=== PATIENT | female | born 1970 | race Caucasian/White ===

== ENCOUNTER 2019-12-24 17:01 | Emergency (ER) | payer OTHER ==
[2019-12-24 17:09] VITALS: BP 105/69; PULSE 101
--- NOTE | 2019-12-24 17:21 | EDM.PDOC ---
ED HPI GENERAL MEDICAL PROBLEM - General Chief Complaint: Respiratory Problem Stated Complaint: body aches, headache, covid+ Time Seen by Provider: 12/24/19 17:05 Source of Information: Reports: Patient History Limitations: Reports: No Limitations - History of Present Illness INITIAL COMMENTS - FREE TEXT/NARRATIVE: Patient comes into the emergency department with complaints of fever, body aches, chills, and Covid19+. Patient states that she was diagnosed Covid positive on December 17 with symptoms are in 3 days prior to that. Patient states that her symptoms have been intermittent initially she had significant fever, body aches, chills and fatigue however they were starting to feel better until about the last 24 hours and have increased. She also states that her cough is increased in shortness of breath with exertion. Patient states that when she is resting and not moving her shortness of breath is pretty minimal. She states that she has been taken Tylenol multiple times a day to help with the headache and the body aches. She does not feel the medication has helped substantially to relieve her symptoms. Onset: Gradual Headache Pain Score (Numeric/FACES): 5 - Related Data Allergies Allergy/AdvReac Type Severity Reaction Status Date / Time No Known Allergies Allergy Verified 12/24/19 17:12 Home Meds: Home Meds Azithromycin 250 mg PO DAILY #6 tablet 12/24/19 [Rx] Benzonatate [Tessalon Perle] 100 mg PO BID #20 capsule 12/24/19 [Rx] Gabapentin [Neurontin] 100 mg PO TID PRN 12/24/19 [History] predniSONE [Prednisone] 20 mg PO BID 5 Days #10 tablet 12/24/19 [Rx] ED ROS GENERAL - Review of Systems Review Of Systems: Comprehensive ROS is negative, except as noted in HPI. Constitutional: Reports: Fever, Chills, Fatigue HEENT: Reports: No Symptoms Respiratory: Reports: Shortness of Breath, Cough Cardiovascular: Reports: Dyspnea on Exertion Endocrine: Reports: No Symptoms GI/Abdominal: Reports: No Symptoms : Reports: No Symptoms Musculoskeletal: Reports: No Symptoms Skin: Reports: No Symptoms Neurological: Reports: No Symptoms Psychiatric: Reports: No Symptoms Hematologic/Lymphatic: Reports: No Symptoms Immunologic: Reports: No Symptoms ED EXAM, GENERAL - Physical Exam Exam: See Below Exam Limited By: No Limitations General Appearance: Alert, WD/WN, No Apparent Distress Eye Exam: Bilateral Eye: EOMI, PERRL Head: Atraumatic, Normocephalic Neck: Normal Inspection, Supple, Non-Tender, Full Range of Motion Respiratory/Chest: No Respiratory Distress, Lungs Clear, No Accessory Muscle Use, Chest Non-Tender, Decreased Breath Sounds Cardiovascular: Normal Peripheral Pulses, Regular Rate, Rhythm, No Edema Peripheral Pulses: 4+: Radial (L), Radial (R) GI/Abdominal: Normal Bowel Sounds, Soft, Non-Tender, No Abnormal Bruit Back Exam: Normal Inspection, Full Range of Motion Extremities: Normal Inspection, Normal Range of Motion, Non-Tender, Normal Capillary Refill Neurological: Alert, Oriented, CN II-XII Intact, Normal Gait Psychiatric: Normal Affect, Normal Mood Skin Exam: Warm, Dry, Intact, Normal Color Course - Vital Signs Last Recorded V/S: Last Vital Signs Temp 37.1 C 12/24/19 17:05 Pulse 101 H 12/24/19 17:05 Resp 20 12/24/19 17:05 BP 105/69 12/24/19 17:05 Pulse Ox 95 12/24/19 17:05 - Orders/Labs/Meds Orders: Active Orders 24 hr Category Date Time Status COMPREHENSIVE METABOLIC PN,CMP [CHEM] Stat Lab 12/24/19 17:14 Ordered PRO B-TYPE NATRIUR PEPT,BNPPRO [CHEM] Stat Lab 12/24/19 17:14 Ordered Labs: Laboratory Tests 12/24/19 Range/Units 17:27 WBC 5.1 (4.0-10.0) x10^3/uL RBC 4.47 (4.00-5.50) x10^6/uL Hgb 13.7 (12.0-16.0) g/dL Hct 40.8 (33.0-47.0) % MCV 91.3 (78.0-93.0) fL MCH 30.6 (26.0-32.0) pg MCHC 33.6 (32.0-36.0) g/dL RDW Coeff of Brenda 12.5 (10.0-15.0) % Plt Count 158 (130-400) x10^3/uL Neut % (Auto) 66.0 (50.0-80.0) % Lymph % (Auto) 24.9 L (25.0-50.0) % Forest % (Auto) 8.5 (2.0-11.0) % Eos % (Auto) 0.4 (0.0-4.0) % Baso % (Auto) 0.2 (0.2-1.2) % Meds: Medications Discontinued Medications Generic Name Dose Route Start Last Admin Trade Name Baldev PRN Reason Stop Dose Admin Ceftriaxone Sodium 1 gm/ 0 gm 12/24/19 17:40 12/24/19 17:50 Lidocaine HCl 2.1 ml IM 12/24/19 17:41 1 inj ONETIME ONE Administration Dexamethasone 8 mg 12/24/19 17:41 12/24/19 17:50 Decadron IM 12/24/19 17:42 8 mg ONETIME ONE Administration Departure - Departure Time of Disposition: 18:00 Disposition: Home, Self-Care 01 Condition: Good Clinical Impression: COVID-19, SOB (shortness of breath) on exertion Pneumonia Qualifiers: Pneumonia type: due to unspecified organism Laterality: left Lung location: lower lobe of lung Qualified Code(s): J18.9 - Pneumonia, unspecified organism - Discharge Information *PRESCRIPTION DRUG MONITORING PROGRAM REVIEWED*: Not Applicable *COPY OF PRESCRIPTION DRUG MONITORING REPORT IN PATIENT ARIANNA: Not Applicable Prescriptions: Azithromycin 250 mg PO DAILY #6 tablet predniSONE [Prednisone] 20 mg PO BID 5 Days #10 tablet Benzonatate [Tessalon Perle] 100 mg PO BID #20 capsule Instructions: Community-Acquired Pneumonia, Adult, Benzonatate capsules, Prednisone tablets, Azithromycin tablets, Probiotics Forms: ED Department Discharge Additional Instructions: 1. rest 2. increase your water intake 3. Take all antibiotics as prescribed even if feeling better 4. Take a probiotic while on antibiotics to help promote healthy GI motility 5. Activity and diet as tolerated 6. Can use Ibuprofen and tylenol for any fever or discomfort 7. Follow up with your PCP or return if symptoms progress or worsen 8. Education provided to you regarding your illness, probiotics, antibiotic prescribed 9. Call with any questions or concerns Sepsis Event Note (ED) - Evaluation Sepsis Screening Result: No Definite Risk - Focused Exam Vital Signs: Vital Signs Temp Pulse Resp BP Pulse Ox 12/24/19 17:05 37.1 C 101 H 20 105/69 95 - My Orders Last 24 Hours: My Active Orders 12/24/19 17:14 COMPREHENSIVE METABOLIC PN,CMP [CHEM] Stat PRO B-TYPE NATRIUR PEPT,BNPPRO [CHEM] Stat - Assessment/Plan Last 24 Hours: My Active Orders 12/24/19 17:14 COMPREHENSIVE METABOLIC PN,CMP [CHEM] Stat PRO B-TYPE NATRIUR PEPT,BNPPRO [CHEM] Stat Assessment:: 1. body ache 2. headache 3. covid-19 + 4. SOB with exertion 5. pneumonia Plan: 1. X-ray completed in the emergency department results reviewed with the patient 2. Labs completed in the ER 3. Rocephin 1 gm IM given in ER. 4. Dexamethasone 8mg IM given in ER 5. Scripts for azithromycin, prednisone, and Tessalon Perles sent with the patient 6. Education regarding splinting, activity, [id number] medications, and follow-up care provided. 7. All questions and concerns addressed with the patient prior to discharge
[2019-12-24] MEDS ORDERED: cefTRIAXone 1 GM, Lidocaine 1% 2.1 ML IM ONE ×2 (17:40)
--- NOTE | 2019-12-24 17:40 | CR ---
[id number] RAD/RAD Chest PA or AP 1V EXAM: FRONTAL CHEST INDICATION: COVID POSITIVE, SHORTNESS OF BREATH. COMPARISON: None. DISCUSSION: Along volumes and body habitus somewhat limit this examination. Mild to moderate left mid and lower lung infiltrates and minor right basilar infiltrates. Borderline heart size without evidence of edema. IMPRESSION: 1. Patchy bilateral infiltrates, left greater than right. Senthil Costello MD 12/24/19 1900 Thank you for allowing us to participate in the care of your patient.
[2019-12-24] MEDS ORDERED: Dexamethasone 4 MG/ML SDV IM ONE (17:41)
[2019-12-24 17:57] LABS: ANION GAP 15.2 mmol/L (10-20); CHLORIDE,CL 103 mmol/L (98-107); SODIUM,NA 140 mmol/L (136-145)
== END 2019-12-24 18:25 | disposition home or self-care (01) ==
LOC: VM.ED 17:01
DX: U07.1 COVID-19 (principal); J12.89 Other viral pneumonia
CPT/HCPCS: 36415; 71045; 80053; 83880; 85025; 96372; 99283; 99284; J0696; J1100; J2001